=== PATIENT | female | born 1960 | race Caucasian/White ===

== ENCOUNTER 2019-07-04 08:15 | Emergency (ER) | payer MEDICAID ==
[~2019-07-04] VITALS: Ht 162.6 cm; Wt 90.9 kg
[2019-07-04] MEDS ORDERED: [UNRECOGNIZED DRUG - REMARK] PO (08:28)
[2019-07-04] MEDS ORDERED: GABA-529 PO (08:28)
[2019-07-04] MEDS ORDERED: INSLAN SQ (08:28)
[2019-07-04] MEDS ORDERED: METF-960 PO (08:28)
[2019-07-04] MEDS ORDERED: IBUP-2271 PO (08:28)
[2019-07-04] MEDS ORDERED: ASPIRIN 81 MG CHEWABLE TABLET PO ONE (09:15)
[2019-07-04 09:43] LABS: BASOPHILS % (AUTO) 0.6 % (0.0-2.0); EOSINOPHILS % (AUTO) 1.4 % (1.0-6.0); HEMATOCRIT 37.9 % (36-46); HEMOGLOBIN 12.8 g/dL (12.0-16.0); LYMPHOCYTES # (AUTO) 2.9 K/uL (1.0-4.8); LYMPHOCYTES % (AUTO) 32.5 % (22.0-44.0); MEAN CORPUSCULAR HEMOGLOBIN 29.9 pg (26.0-34.0); MEAN CORPUSCULAR HGB CONC 33.7 G/dL (31.0-37.0); MEAN CORPUSCULAR VOLUME 89 fL (80-100); MONOCYTES # (AUTO) 0.7 K/uL (0.1-1.0); MONOCYTES % (AUTO) 8.1 % (2.0-9.0); NEUTROPHILS # (AUTO) 5.1 K/uL (1.8-7.7); NEUTROPHILS % (AUTO) 57.4 % (40.0-70.0); PLATELET COUNT (AUTO) 188 K/uL (150-450); RED BLOOD CELL COUNT(AUTO) 4.27 MIL/uL (4.00-5.20); RED CELL DISTRIBUTION WIDTH 14.9 % (11.5-14.5)
[2019-07-04 09:45] LABS: APPEARANCE,URINE CLEAR (CLEAR); BILIRUBIN,URINE NEGATIVE (NEGATIVE); GLUCOSE, URINE (UA) NEGATIVE (NEGATIVE); KETONES,URINE NEGATIVE (NEGATIVE); NITRATE,URINE NEGATIVE (NEGATIVE); OCCULT BLOOD,URINE NEGATIVE (NEGATIVE); PH,URINE 7.5 (5.0-8.0); PROTEIN,URINE NEGATIVE (NEGATIVE); UROBILINOGEN,URINE 0.2 mg/dL (<=1.0)
[2019-07-04 09:48] LABS: BACTERIA,URINE None Seen /HPF (None Seen); LEUKOCYTE ESTERASE ,URINE SMALL (NEGATIVE); RBC,URINE None Seen /HPF (0-2); SQUAMOUS EPITHELIAL CELL,UR Few /LPF (None Seen)
[2019-07-04 09:57] LABS: ANION GAP 7 mmol/L (8-16); CARBON DIOXIDE 30 mmol/L (22-29); CHLORIDE 100 mmol/L (98-107); CREATININE 0.64 mg/dL (0.60-1.30); GLOMERULAR FILTR. RATE CALC > 60 mL/min (>60); GLUCOSE,RANDOM 187 mg/dL (70-110); POTASSIUM 4.1 mmol/L (3.5-5.1); SODIUM SERUM 137 mmol/L (136-145); UREA NITROGEN, BLOOD 10 mg/dL (7-18)
[2019-07-04] MEDS ORDERED: ONDANSETRON HCL 4 MG/2 ML VIAL IVP ONE (10:00)
[2019-07-04 10:20] LABS: B-TYPE NATRIURETIC PEPTIDE 14 pg/mL (0-100)
[2019-07-04 10:22] LABS: ALANINE AMINOTRANSFERASE 32 U/L (12-78); ALBUMIN 3.6 g/dL (3.4-5.0); ALKALINE PHOSPHATASE 139 U/L (46-116); ASPARTATE AMINOTRANSFERASE 24 U/L (15-37); BILIRUBIN,TOTAL 0.4 mg/dL (0.1-1.0); CREATINE KINASE, TOTAL ONLY 137 U/L (26-192); TOTAL PROTEIN, SERUM 7.3 g/dL (6.4-8.2)
[2019-07-04] MEDS ORDERED: DOXYCYCLINE HYCLATE 100 MG CAPSULE PO ONE (11:45)
[2019-07-04 11:50] VITALS: BP 129/84
== END 2019-07-04 12:16 | disposition home or self-care (01) ==
LOC: EMS 08:17
DX: J40 Bronchitis, not specified as acute or chronic (principal); E11.9 Type 2 diabetes mellitus without complications; I10 Essential (primary) hypertension; E78.00 Pure hypercholesterolemia, unspecified; Z79.4 Long term (current) use of insulin
CPT/HCPCS: 36415; 71045; 80053; 81001; 82550; 82962; 83880; 84484; 85025; 93005; 96374; 99285; J2405

== ENCOUNTER 2019-11-09 09:02 | Emergency (ER) | payer MEDICAID ==
[~2019-11-09] VITALS: Ht 160 cm; Wt 90.9 kg
[~2019-11-09 09:02] MED LIST: GABA-529 PO; IBUP-2271 PO; INSLAN SQ; METF-960 PO; [UNRECOGNIZED DRUG - REMARK] PO
[2019-11-09] MEDS ORDERED: DIPH25CA85 PO (09:07)
[2019-11-09] MEDS ORDERED: FAMOTIDINE 20 MG TABLET PO ONE (10:30)
[2019-11-09] MEDS ORDERED: PredniSONE 20 MG TABLET PO ONE (10:30)
[2019-11-09] MEDS ORDERED: DiphenhydrAMINE HCL 25 MG CAPSULE PO ONE (10:30)
[2019-11-09 11:10] VITALS: BP 130/60
== END 2019-11-09 11:12 | disposition home or self-care (01) ==
LOC: EMS 09:10
DX: R21 Rash and other nonspecific skin eruption (principal); E11.9 Type 2 diabetes mellitus without complications; E78.00 Pure hypercholesterolemia, unspecified; I10 Essential (primary) hypertension; Z79.84 Long term (current) use of oral hypoglycemic drugs
CPT/HCPCS: 99284; J7512

== ENCOUNTER 2019-11-10 07:54 | Emergency (ER) | payer MEDICAID ==
[~2019-11-10] VITALS: Ht 154.9 cm; Wt 90.9 kg
[~2019-11-10 07:54] MED LIST changes: +DIPH25CA85 PO
[2019-11-10 08:05] VITALS: BP 148/69
[2019-11-10 10:00] LABS: GLUCOSE,POINT OF CARE 250 MG/DL (70-110)
== END 2019-11-10 08:25 | disposition home or self-care (01) ==
LOC: EMS 07:57
DX: R21 Rash and other nonspecific skin eruption (principal); E11.9 Type 2 diabetes mellitus without complications; E78.00 Pure hypercholesterolemia, unspecified; I10 Essential (primary) hypertension; Z79.4 Long term (current) use of insulin; Z79.84 Long term (current) use of oral hypoglycemic drugs

== ENCOUNTER 2021-08-11 11:43 | Emergency (ER) | payer MEDICAID ==
[~2021-08-11] VITALS: Ht 157.5 cm; Wt 104.5 kg
[~2021-08-11 11:43] MED LIST changes: +GABA-1216 PO; -GABA-529 PO; -IBUP-2271 PO; +IBUP-2759 PO; +METF-1211 PO; -METF-960 PO
[2021-08-11 13:15] LABS: BASOPHILS % (AUTO) 0.8 % (0.0-2.0); EOSINOPHILS % (AUTO) 0.6 % (1.0-6.0); HEMATOCRIT 38.9 % (36-46); HEMOGLOBIN 13.1 g/dL (12.0-16.0); LYMPHOCYTES # (AUTO) 2.8 K/uL (1.0-4.8); LYMPHOCYTES % (AUTO) 38.3 % (22.0-44.0); MEAN CORPUSCULAR HEMOGLOBIN 28.8 pg (26.0-34.0); MEAN CORPUSCULAR HGB CONC 33.6 G/dL (31.0-37.0); MEAN CORPUSCULAR VOLUME 86 fL (80-100); MONOCYTES # (AUTO) 0.6 K/uL (0.1-1.0); MONOCYTES % (AUTO) 8.4 % (2.0-9.0); NEUTROPHILS # (AUTO) 3.8 K/uL (1.8-7.7); NEUTROPHILS % (AUTO) 51.9 % (40.0-70.0); PLATELET COUNT (AUTO) 198 K/uL (150-450); RED BLOOD CELL COUNT(AUTO) 4.53 MIL/uL (4.00-5.20); RED CELL DISTRIBUTION WIDTH 15.9 % (11.5-14.5)
[2021-08-11 13:16] LABS: GLUCOSE,POINT OF CARE 171 MG/DL (70-110)
[2021-08-11 13:24] LABS: ANION GAP 8 mmol/L (8-16); CALCIUM, TOTAL 9.1 mg/dL (8.8-10.5); CARBON DIOXIDE 29 mmol/L (22-29); CHLORIDE 102 mmol/L (98-107); CREATININE 0.72 mg/dL (0.60-1.30); GLOMERULAR FILTR. RATE CALC > 60 mL/min (>60); GLUCOSE,RANDOM 181 mg/dL (70-110); POTASSIUM 4.2 mmol/L (3.5-5.1); SODIUM SERUM 139 mmol/L (136-145); UREA NITROGEN, BLOOD 10 mg/dL (7-18)
[2021-08-11 17:21] VITALS: BP 131/74
== END 2021-08-11 17:55 | disposition home or self-care (01) ==
LOC: EMS 11:43
DX: I10 Essential (primary) hypertension (principal); E11.65 Type 2 diabetes mellitus with hyperglycemia; R00.2 Palpitations; E22.0 Acromegaly and pituitary gigantism; E78.00 Pure hypercholesterolemia, unspecified; Z79.84 Long term (current) use of oral hypoglycemic drugs; Z79.4 Long term (current) use of insulin
CPT/HCPCS: 70450; 80048; 82948; 82962; 85025; 93005; 99285

== ENCOUNTER 2021-12-04 15:34 | Emergency (ER) | payer MEDICAID ==
[~2021-12-04] VITALS: Ht 160 cm; Wt 90.0 kg
[2021-12-04] MEDS ORDERED: ACET-2247 PO (15:36)
[2021-12-04] MEDS ORDERED: ONDANSETRON HCL 4 MG/2 ML VIAL IVP ONE (16:00)
[2021-12-04] MEDS ORDERED: DiphenhydrAMINE HCL 50 MG/ML VIAL IVP ONE (16:00)
[2021-12-04] MEDS ORDERED: ACETAMINOPHEN 500 MG TABLET PO ONE (16:00)
[2021-12-04] MEDS ORDERED: METOCLOPRAMIDE HCL 5 MG/ML 2 ML VIAL IVP ONE (16:00)
[2021-12-04 16:14] LABS: BASOPHILS % (AUTO) 0.5 % (0.0-2.0); EOSINOPHILS % (AUTO) 1.1 % (1.0-6.0); HEMATOCRIT 38.4 % (36-46); LYMPHOCYTES # (AUTO) 2.1 K/uL (1.0-4.8); LYMPHOCYTES % (AUTO) 21.2 % (22.0-44.0); MEAN CORPUSCULAR HEMOGLOBIN 28.9 pg (26.0-34.0); MEAN CORPUSCULAR HGB CONC 33.7 G/dL (31.0-37.0); MEAN CORPUSCULAR VOLUME 86 fL (80-100); MONOCYTES # (AUTO) 0.5 K/uL (0.1-1.0); MONOCYTES % (AUTO) 5.7 % (2.0-9.0); NEUTROPHILS # (AUTO) 6.9 K/uL (1.8-7.7); NEUTROPHILS % (AUTO) 71.5 % (40.0-70.0); PLATELET COUNT (AUTO) 197 K/uL (150-450); RED BLOOD CELL COUNT(AUTO) 4.49 MIL/uL (4.00-5.20); RED CELL DISTRIBUTION WIDTH 15.6 % (11.5-14.5)
[2021-12-04 17:57] LABS: ANION GAP 10 mmol/L (8-16); CALCIUM, TOTAL 9.1 mg/dL (8.8-10.5); CARBON DIOXIDE 26 mmol/L (22-29); CHLORIDE 100 mmol/L (98-107); CREATININE 0.59 mg/dL (0.60-1.30); GLUCOSE,RANDOM 172 mg/dL (70-110); SODIUM SERUM 136 mmol/L (136-145); UREA NITROGEN, BLOOD 10 mg/dL (7-18)
[2021-12-04 18:02] LABS: GLOMERULAR FILTR. RATE CALC > 60 mL/min (>60)
[2021-12-04 18:03] LABS: ALANINE AMINOTRANSFERASE 41 U/L (12-78); ALBUMIN 3.8 g/dL (3.4-5.0); ALKALINE PHOSPHATASE 118 U/L (46-116); ASPARTATE AMINOTRANSFERASE 27 U/L (15-37); BILIRUBIN,TOTAL 0.3 mg/dL (0.1-1.0); LIPASE 269 U/L (73-393); TOTAL PROTEIN, SERUM 7.3 g/dL (6.4-8.2)
[2021-12-04 18:05] VITALS: BP 146/85
== END 2021-12-04 19:16 | disposition home or self-care (01) ==
LOC: EMS 15:36
DX: R51.9 Headache, unspecified (principal); E11.9 Type 2 diabetes mellitus without complications; E78.00 Pure hypercholesterolemia, unspecified; I10 Essential (primary) hypertension; Z87.19 Personal history of other diseases of the digestive system; Z87.898 Personal history of other specified conditions; Z98.890 Other specified postprocedural states
CPT/HCPCS: 36415; 70450; 80053; 83690; 85025; 96374; 96375; 99284; J1200; J2405; J2765